=== PATIENT | female | born 1980 | race Caucasian/White ===

== ENCOUNTER 2016-04-14 18:40 | Emergency (ER) | payer SELFPAY ==
[~2016-04-14] VITALS: Ht 152.4 cm; Wt 45.4 kg
[~2016-04-14 18:40] MED LIST: ATIVAN0.5 MG PO; BACTRIM DS 8001 TA1 PO; BACTROBAN CREAM15 GM PO; BIRTH CONTROL1 EAC1 PO; BUPROPION HCL150 M1 PO; CEFTIN500 M1 PO; CYMBALTA30 MG PO; HYDROCODONE BIT1 T11 PO; HYDROXYZINE HCL25 M1 PO; JUNEL FE 1/20 21 TAB PO; KEFLEX500 MG PO; LORAZEPAM0.5 MG PO; Motrin,Rufen800 MG PO; NAPROSYN500 MG PO; PERCOCET 325 MG1 TA2 PO; PROVENTIL0.09 MG/A1 INH; RIZATRIPTAN5 MG PO; TOPIRAMATE25 M3 PO; ZOLOFT25 MG PO; [UNRECOGNIZED DRUG - OTHER]
[2016-04-14] MEDS ORDERED: LORAZEPAM1 MG PO (18:48)
[2016-04-14] MEDS ORDERED: Ventolin 02.5 MG/3 M INH (18:48)
[2016-04-14] MEDS ORDERED: Atrovent I0.5 MG/2.5 INH (18:49)
[2016-04-14] MEDS ORDERED: NAPROSYN500 MG PO (19:42)
[2016-04-14] MEDS ORDERED: CYCLOBENZAPRINE10 MG PO (19:42)
== END 2016-04-14 19:50 | disposition home or self-care (01) ==
LOC: ED 18:40
DX: S30.0XXA Contusion of lower back and pelvis, initial encounter (principal); S39.012A Strain of muscle, fascia and tendon of lower back, initial encounter; F17.210 Nicotine dependence, cigarettes, uncomplicated; W00.0XXA Fall on same level due to ice and snow, initial encounter; Y93.89 Activity, other specified; Y92.9 Unspecified place or not applicable; Y99.9 Unspecified external cause status